=== PATIENT | female | born 1980 | race African-American/Black ===

== ENCOUNTER 2024-01-24 21:31 | Emergency (ER) | payer OTHER ==
[~2024-01-24] VITALS: Ht 167.6 cm; Wt 62.7 kg
[2024-01-24 21:39] VITALS: TEMP 98.3
[2024-01-24 22:07] LABS: EOSINOPHILS % (AUTO) 0.3 % (1.0-6.0); HEMATOCRIT 34.5 % (36-46); HEMOGLOBIN 11.4 g/dL (12.0-16.0); LYMPHOCYTES # (AUTO) 1.5 K/uL (1.0-4.8); LYMPHOCYTES % (AUTO) 25.2 % (22.0-44.0); MEAN CORPUSCULAR HEMOGLOBIN 31.1 pg (26.0-34.0); MEAN CORPUSCULAR HGB CONC 32.9 G/dL (31.0-37.0); MEAN CORPUSCULAR VOLUME 95 fL (80-100); MONOCYTES # (AUTO) 0.4 K/uL (0.1-1.0); NEUTROPHILS % (AUTO) 67.5 % (40.0-70.0); PLATELET COUNT (AUTO) 280 K/uL (150-450); RED BLOOD CELL COUNT(AUTO) 3.65 MIL/uL (4.00-5.20); RED CELL DISTRIBUTION WIDTH 13.9 % (11.5-14.5)
[2024-01-24 22:14] LABS: ANION GAP 10 mmol/L (8-16); CALCIUM, TOTAL 9.3 mg/dL (8.8-10.5); CARBON DIOXIDE 30 mmol/L (22-29); CHLORIDE 100 mmol/L (98-107); CREATININE 0.99 mg/dL (0.60-1.30); GLOMERULAR FILTR. RATE CALC > 60 mL/min (>60); GLUCOSE,RANDOM 135 mg/dL (70-110); POTASSIUM 3.5 mmol/L (3.5-5.1); SODIUM SERUM 140 mmol/L (136-145); UREA NITROGEN, BLOOD 15 mg/dL (7-18)
[2024-01-24 22:54] VITALS: BP 111/70; PULSE 66; RESP 15
[2024-01-25] MEDS: IBUPROFEN 600 MG TABLET PO ONE (00:13)
[2024-01-25] MEDS: DEXAMETHASONE SOD PHOS 4 MG/ML 5 ML VIAL IM ONE (00:32)
[2024-01-25 01:01] LABS: COVID AG,FIA SOURCE NASAL SWAB
[2024-01-25 01:07] LABS: SARS-COV2 (COVID) ANTIGEN,FIA Negative (Negative)
[2024-01-25] MEDS ORDERED: METH4TAB3 PO (01:22)
== END 2024-01-25 01:28 | disposition home or self-care (01) ==
LOC: EMS 21:31
DX: F41.9 Anxiety disorder, unspecified (principal); G35 Multiple sclerosis; Z79.899 Other long term (current) drug therapy; Z20.822 Contact with and (suspected) exposure to COVID-19
CPT/HCPCS: 99285; 71045; 87426; 80048; 85025; 36415; 93005; 96372; J1100